=== PATIENT | male | born 1950 | race Caucasian/White ===

== ENCOUNTER 2016-04-15 08:38 | Day surgery (SDC) | payer OTHER, BC ==
[2016-04-08 14:39] VITALS: BMI 25.8
--- NOTE | 2016-04-09 13:58 | HP ---
DATE OF SURGERY: 04/15/2016 DIAGNOSIS ON ADMISSION: Bilateral inguinal hernias. BRIEF HISTORY: This is a 65-year-old gentleman who is status post bilateral inguinal hernia repair approximately 60 years ago. He knows he has had a hernia in the left groin for at least a year now. Over this time course, the patient states the hernia has gotten larger and now over the past several months he has had progressive pain in the area as well. The pain is exacerbated with any type of strenuous activity. He has had no nausea, no vomiting. He also complains of having pain in the right groin similar to that in the left. Patient denies having a lump in the right groin. He has had no nausea, no vomiting, no change in bowel habits. PAST MEDICAL HISTORY: No coronary disease, hypertension, or diabetes. PAST SURGICAL HISTORY: As mentioned above, bilateral hip replacement, laparoscopic cholecystectomy, and bilateral cataract. ALLERGIES: RIFAMPIN and VANCOMYCIN. MEDICATIONS: None. SOCIAL HISTORY: Patient does not smoke nor drink. PHYSICAL EXAMINATION: LUNGS: Clear. HEART: Regular rhythm. ABDOMEN: Soft, nontender, and nondistended. Well-healed inguinal scars. He has an obvious large left inguinal hernia which is only partially reducible in the supine position. He has a smaller right inguinal hernia as well. GENITALIA: Scrotum and testicles within normal limits. IMPRESSION/PLAN: Chronic incarcerated left inguinal hernia, right inguinal hernia: This is a 65-year-old gentleman with known recurrent left inguinal hernia. Over this past year, the hernia has become more symptomatic and now he wishes to have this repaired. On exam, he also is noted to have a small recurrent right inguinal hernia as well. Patient will be scheduled for bilateral laparoscopic inguinal herniorrhaphy with mesh. Indications, alternatives, and complications are discussed. Questions answered. Will plan to obtain written consent the day of surgery. LENNIE CATHERINE M.D. [id number] cc: Stuart Platt MD MTDD
[2016-04-15] MEDS ORDERED: TAMSULOSIN HCL 0.4 MG CAP.ER.24H (FP) ONE (08:57)
[2016-04-15] MEDS ORDERED: MIDAZOLAM HCL 2 MG/2 ML SINGLE DOSE VIAL ONE ×2 (10:19→11:29)
[2016-04-15] MEDS ORDERED: PROPOFOL 20 ML ONE ×2 (10:39)
[2016-04-15] MEDS ORDERED: ROCURONIUM BROMIDE 50 MG/5 ML VIAL ONE (10:40)
[2016-04-15] MEDS ORDERED: LIDOCAINE HCL/PF 2% SDV 5ML VIAL ONE (10:40)
[2016-04-15] MEDS ORDERED: LIDOCAINE HCL 2% JELLY (5 ML/TUBE) ONE (10:47)
[2016-04-15] MEDS ORDERED: oxyCODONE HCL 5 MG TABLET PO PRN (10:50)
[2016-04-15] MEDS ORDERED: LACTATED RINGERS SOLUTION 1,000 ML IV SCH (11:00)
[2016-04-15] MEDS ORDERED: ONDANSETRON 4 MG/2 ML VIAL IVPUSH PRN (11:06)
[2016-04-15] MEDS ORDERED: ceFAZolin SODIUM 1 GM VIAL ONE (11:49)
[2016-04-15] MEDS ORDERED: DEXAMETHASONE SOD PHOSPHATE 4 MG/1 ML VIAL ONE ×3 (11:59→12:00)
[2016-04-15] MEDS ORDERED: GLYCOPYRROLATE 0.2 MG/1 ML VIAL ONE (12:15)
[2016-04-15] MEDS ORDERED: NEOSTIGMINE METHYLSULFATE 0.5 MG/ML - 10 ML MDV ONE (12:15)
[2016-04-15] MEDS ORDERED: ONDANSETRON 4 MG/2 ML VIAL ONE ×2 (12:22)
[2016-04-15] MEDS ORDERED: oxyCODONE HCL 5 MG TABLET ONE (14:31)
[2016-04-15 17:11] VITALS: TEMP 98
[2016-04-15 17:18] VITALS: BP 133/65; PULSE 71
--- NOTE | 2016-04-16 11:51 | OP ---
OPERATIVE NOTE DATE OF OPERATION: 04/15/2016 PREOPERATIVE DIAGNOSIS: Recurrent left inguinal hernia; recurrent right inguinal hernia. POSTOPERATIVE DIAGNOSIS: Recurrent left pantaloon inguinal hernia; recurrent right indirect inguinal hernia. PROCEDURE: Bilateral laparoscopic repair of recurrent inguinal hernias with mesh. SURGEON: Thor Nicolas MD [employer] MILL ROLLER: Andrea Ellsworth MD ANESTHESIA: Samantha Hernandez MD (general) ESTIMATED BLOOD LOSS: Minimal. SPECIMEN: None. PROCEDURE: This is a 65-year-old gentleman with a large lump and pain in the left groin region. On physical examination, he has a recurrent large left inguinal hernia and he is also noted to have one on the right. He is here now for operative repair. The patient was identified and appropriately positioned on the operating room table. After placement of general anesthesia, the patient's abdomen was prepped and draped in the usual sterile fashion. An infraumbilical incision was made deep in the subcutaneous tissues. The fascia of the rectus muscle on the left was identified and divided sharply. The muscle split under direct vision. A dissector balloon followed by a structural balloon placed. Also under direct vision, a suprapubic 11-mm port placed. The following structures on the left side identified: Pubic tubercle, Yannick ligament, inferior epigastric vessels, spermatic cord and lateral abdominal wall. During this dissection, he had an incarcerated direct inguinal hernia containing fat. This was reduced back into the preperitoneal space. He had a moderate to large indirect inguinal hernia sac which was reduced back into the preperitoneal space with a moderate-sized lipoma. A 4.5 x 6 piece of Versatex mesh was keyhole-placed through the suprapubic port. The mesh wrapped around the cord structures laterally to reconstruct the internal ring. Laterally, mesh anchored to the anterior abdominal and lateral abdominal wall. Medially, mesh anchored to the anterior abdominal wall, pubic tubercle and Yannick ligament. Upon completion of the left side, a similar structure on the right side identified. On the right side, the patient was noted to have attenuation of the direct floor , but no actual defect. He had a small indirect inguinal hernia sac with a moderate cord lipoma. Both reduced back in the preperitoneal space. Another 4.5 x 6 piece of Versatex mesh was keyhole-placed through the suprapubic port site. The mesh wrapped around the cord structures laterally to reconstruct the internal ring. The lateral mesh anchored to the anterior abdominal wall and lateral abdominal wall. Medially, the mesh overlapped in the midline and anchored to the anterior abdominal wall, pubic tubercle and Yannick ligament. The preperitoneal space desufflated under direct vision. The operative site noted to be hemostatic. All anterior abdominal wall and lateral abdominal wall anchors placed under direct counter palpation. The anchoring system used was the [employer] [place]. The ports were removed. Port sites were hemostatic. The fascia at the superior port site and suprapubic port site were re-approximated with interrupted 0 Vicryl suture. All skin closed with 4-0 Biosyn followed by Dermabond. INSTRUMENT AND SPONGE COUNTS: Correct. ATTESTATION: Brief operative note handwritten on the pre-printed form. [facility] queried prior to giving any narcotics. Nadine LITTLEJOHN [id number] CC: Stuart Platt MD MTDD
== END 2016-04-15 15:30 | disposition home or self-care (01) ==
LOC: FASU 08:38
PROVIDERS: ATTEND Surgery
PROC: 0YUA4JZ Supplement Bilateral Inguinal Region with Synthetic Substitute, Percutaneous Endoscopic Approach (ICD-10-PCS; principal; 2016-04-15 11:55)
DX: K40.21 Bilateral inguinal hernia, without obstruction or gangrene, recurrent (principal)
CPT/HCPCS: 94760